=== PATIENT | female | born 1960 | race Caucasian/White ===

== ENCOUNTER 2022-04-05 06:59 | Outpatient (RCR) | payer OTHER, SELFPAY | END 2022-05-06 09:52 | disposition home or self-care (01) | LOC: HO.PTCHIC 06:59 | PROVIDERS: PCP Internal Medicine Endocrinology, Diabetes & Metabolism; Visit Provider Physician Assistant Surgical | DX: R39.81 Functional urinary incontinence (principal); R39.15 Urgency of urination | CPT/HCPCS: 97112; 97162 ==